=== PATIENT | female | born 1950 | race African-American/Black ===

== ENCOUNTER 2022-11-20 01:12 | Emergency (ER) | payer MEDICARE, OTHER ==
[~2022-11-20] VITALS: Ht 162.6 cm; Wt 145.0 kg
[2022-11-20 01:16] VITALS: O2SAT 98
[2022-11-20] MEDS ORDERED: ACETAMINOPHEN 325MG TABLET PO ONE (01:30)
[2022-11-20] MEDS ORDERED: TETANUS, DIPHTHERIA, PERTUSSIS VAC/PF 0.5ML (>10YR OLD) IM ONE (01:45)
[2022-11-20 02:06] LABS: EOSINOPHILS % 2.4 % (0.0-5.0); HEMATOCRIT. 29.2 % (36.0-48.0); HEMOGLOBIN. 9.3 g/dL (12.0-16.0); MEAN CORPUSCULAR HEMOGLOBIN 25.8 pg (28.0-32.0); MEAN CORPUSCULAR HGB CONC 31.9 g/dL (31.0-37.0); MEAN CORPUSCULAR VOLUME 80.9 fL (81.0-99.0); MEAN PLATELET VOLUME 8.8 fl (7.4-10.4); MONOCYTES % 14.4 % (2.0-8.0); NEUTROPHILS % 70.2 % (40.0-76.0); PLATELET 193 x1000/uL (130-400); RED BLOOD CELL COUNT 3.61 mill/uL (4.2-5.4); RED CELL DISTRIBUTION WIDTH 18.6 % (11.6-14.6); WHITE BLOOD COUNT 6.4 x1000/uL (4.5-11.0)
[2022-11-20 02:16] LABS: CHLORIDE 107 mEq/L (98-107); INDEX HEMOLYSI 1 (1-3); INDEX ICTERIC 1 (1-4); INDEX LIPEMIC 1 (1-3); SODIUM 137 mEq/L (136-145)
[2022-11-20 02:23] LABS: ALANINE AMINOTRANSFERASE < 6 IU/L (13-61); ALBUMIN 2.4 g/dL (3.4-5.0); ASPARTATE AMINOTRANSFERASE 13 IU/L (15-37); BILIRUBIN TOTAL 0.5 mg/dL (0.1-1.0); CALCIUM 8.5 mg/dL (8.5-10.1); CARBON DIOXIDE 22 mEq/L (21-32); CREATININE 2.8 mg/dL (0.6-1.3); GLUCOSE 306 mg/dL (70-105); PROTEIN TOTAL 7.3 g/dL (6.0-8.3); UREA NITROGEN BLOOD 62 mg/dL (7-21)
[2022-11-20] MEDS ORDERED: CEFAZOLIN 1000MG PREMIX 50 ML IV ONE (03:15)
[2022-11-20 04:00] LABS: LACTIC ACID 2.5 mmol/L (0.4-2.0)
[2022-11-20] MEDS ORDERED: HYDROCODONE/ACETAMINOPHEN 5/325MG TABLET PO ONE (05:45)
[2022-11-20 05:58] VITALS: BP 142/68; PULSE 65; RESP 17; TEMP 98.3
[2022-11-20] MEDS ORDERED: CEFAZOLIN 1000MG PREMIX 50 ML IV NR (06:00)
== END 2022-11-20 06:08 | disposition short-term general hospital (02) ==
LOC: ER 01:12 → EDBEDREQ 03:05 → ER 06:08
DX: S92.512A Displaced fracture of proximal phalanx of left lesser toe(s), initial encounter for closed fracture (principal); I11.0 Hypertensive heart disease with heart failure; I50.9 Heart failure, unspecified; E11.9 Type 2 diabetes mellitus without complications; J44.1 Chronic obstructive pulmonary disease with (acute) exacerbation; Z00.00 Encounter for general adult medical examination without abnormal findings; Z86.73 Personal history of transient ischemic attack (TIA), and cerebral infarction without residual deficits; W22.01XA Walked into wall, initial encounter; Y93.89 Activity, other specified; Y92.89 Other specified places as the place of occurrence of the external cause; Y99.8 Other external cause status
CPT/HCPCS: 36415; 73620; 80053; 83605; 84145; 85025; 90715; 99285; J0690